=== PATIENT | male | born 1965 | race Caucasian/White ===

== ENCOUNTER 2016-08-17 22:05 | Inpatient (IN) | payer OTHER ==
[~2016-08-17] VITALS: Ht 172.7 cm; Wt 79.2 kg
[2016-08-17] MEDS ORDERED: NALOXONE HCL 0.4 MG/ML AMP IV PRN (23:00)
[2016-08-17] MEDS ORDERED: SODIUM CHLORIDE 0.9% FLUSH 10 ML FLUSH IV FLUSH PRN (23:00)
[2016-08-18] VITALS (8 sets, daily range): BP systolic 118–137; BP diastolic 73–95; PULSE 64–78; RESP 16–18; TEMP 96.3–97.6; O2SAT 94–95
--- NOTE | 2016-08-18 03:17 | HHI.HP ---
[facility] Service [place] [facility] Primary Care Physician Unknown Admission Diagnosis subdural hematoma Diagnoses: Chief Complaint: "fell down a flight of stairs" Travel History International Travel<30 Days: No Contact w/Intl Traveler <30 Da: No Traveled to Known Affected Are: No History of Present Illness Written by Mariza Lei, acting as scribe for Dr. Meyers on 08/18/16 at 03: 17. This is a 50 year old male patient with a past medical history which includes asthma and EtOH abuse. Patient had been drinking on Tuesday when he slipped and fell down a flight of stairs. Patient denies loss of consciousness but does have visible abrasion right side of the forehead. Patient also reports left chest wall pain worse with taking a deep breath or palpation. Pain is better with IV Dilaudid. Patient denies shortness of breath, dizziness, nausea, vomiting, black tarry stools or bright red blood in stool. Patient does report he had diarrhea a few days ago which has resolved. Patient reports he used to drink a 12 pack of beer a day but now drinks a 12 pack of beer 2 days a week. Patient reports he is trying to cut down on his alcohol use. Review of Systems ROS Limitations: Poor Historian Except as stated in HPI: all other systems reviewed are Neg Past Family Social History Past Medical History asthma Past Surgical History denies prior surgery Reported Medications No Active Prescriptions or Reported Medications Allergies: Coded Allergies: No Known Allergies (Unverified , 08/17/16) Active Ordered Medications Current Medications Medications (Trade) Dose Ordered Sig/Audie Route Start Time Stop Time Status Last Admin (NS Flush) 2 ml UNSCH PRN IV FLUSH 08/17/16 23:00 (NS Flush) 2 ml BID IV FLUSH 08/18/16 09:00 (Narcan Inj) 0.4 mg UNSCH PRN IV 08/17/16 23:00 Family History brother has a heart murmur Social History drink a 12 pack of beer twice a week denies tobacco use now or in the past cocaine last used in the s Physical Exam Vital Signs Vital Signs Date Time Temp Pulse Resp B/P Pulse Ox O2 Delivery O2 Flow Rate FiO2 08/18/16 00:00 97.3 70 18 134/86 95 Physical Exam GENERAL: This is a well-nourished, well-developed patient, in no apparent distress. SKIN: abrasion right side of forehead HEAD: abrasion right side fo forehead EYES: Extraocular motions intact. No scleral icterus. No injection or drainage. CARDIOVASCULAR: Regular rate and rhythm without murmurs, gallops, or rubs. RESPIRATORY: Clear to auscultation. Breath sounds equal bilaterally. No wheezes , rales, or rhonchi. GASTROINTESTINAL: Abdomen soft, non-tender, nondistended. No hepato-splenomegaly , or palpable masses. No guarding. MUSCULOSKELETAL: Extremities without clubbing, cyanosis, or edema. No joint tenderness, effusion, or edema noted. No calf tenderness. Negative Homans sign bilaterally. NEUROLOGICAL: Awake and alert. no focal deficits noted. Motor and sensory grossly within normal limits. Five out of 5 muscle strength in all muscle groups. Normal speech. Assessment and Plan Assessment and Plan This is a 50-year-old male patient with past medical history she includes asthma and EtOH abuse. Patient was drinking on Tuesday and slipped falling down a flight of stairs. Patient with abrasion right side of forehead and left sided chest wall pain. CT of the head revealed and reveals small amount of subdural hemorrhage. CT of the chest reviewed and reveals left-sided rib fractures without pneumothorax. subdural hematoma CT of the head reviewed and reveals there is some mild thickening of the Falx and tentorium especially on the left concerning for small amount of subdural hemorrhage. No midline shift or mass effect [place] [facility] provider discussed with Dr. Cheney- recommends repeat head CT in 48 hours, consider consult to Dr. Cheney based on results of repeat CT serial neuro checks Rib fractures left side CT of the chest reviewed and reveals no consolidation or mass. Left-sided rib fractures without pneumothorax IS every hour while awake [place] by mouth and morphine IV as needed fall secondary to ETOH intoxication ETOH abuse counselled encouraged to abstain DVT prophylaxis with SCDs avoid chemical anticoagulations- patient with subdural hematoma Discussed with ER provider, nursing and patient Mariza Lei Aug 18, 2016 03:17 Mariza Lei Aug 18, 2016 03:17
[2016-08-18] MEDS: ACETAMINOPHEN/HYDROcodone 325 MG/5 MG TAB PO PRN ×5 (03:40→21:42)
[2016-08-18 07:45] LABS: AUTOMATED NEUTROPHIL # 4.8 TH/MM3 (1.8-7.7); BASOPHIL % 0.3 % (0.0-2.0); EOSINOPHIL # 0.1 TH/MM3 (0-0.4); EOSINOPHIL % 2.1 % (0.0-4.0); HEMATOCRIT 41.6 % (39.0-51.0); HEMO FLAGS DIFF FINAL; LYMPH % 13.4 % (9.0-44.0); LYMPHOCYTE # 0.9 TH/MM3 (1.0-4.8); MEAN CELL VOLUME 94.5 FL (80.0-100.0); MEAN CORPUSCULAR HEMOGLOBIN 33.6 PG (27.0-34.0); MEAN CORPUSCULAR HGB CONC 35.5 % (32.0-36.0); MONO % 14.7 % (0.0-8.0); NEUT % 69.5 % (16.0-70.0); PLATELET COUNT 136 TH/MM3 (150-450); RED BLOOD COUNT 4.41 MIL/MM3 (4.50-5.90); RED CELL DISTRIBUTION WIDTH 12.3 % (11.6-17.2); WHITE BLOOD COUNT 6.8 TH/MM3 (4.0-11.0)
[2016-08-18 08:09] LABS: POTASSIUM 3.3 MEQ/L (3.5-5.1)
[2016-08-18] MEDS ORDERED: POTASSIUM CHLORIDE 20 MEQ CONTROLLED RELEASE TAB PO ONE ×2 (08:30→10:45)
[2016-08-18] MEDS: SODIUM CHLORIDE 0.9% FLUSH 10 ML FLUSH IV FLUSH SCH ×2 (09:08→22:59)
--- NOTE | 2016-08-18 16:19 | HHI.PR ---
Subjective Remarks This is a pleasant 50 y/o male with Asthma and EtOH abuse, he slipped and fell down a flight of stairs Patient denies loss of consciousness but does have visible abrasion right side of the forehead. Patient also reports left chest wall pain worse with taking a deep breath or palpation, no nausea, vomit or diarrhea, he drinks 12 pack of beer 2 days a week, blood in stool. he was sent from [place] [facility] for admission with status post Head Trauma for new CT Head to be performed by tomorrow as recommended by Neurosurgery and if okay discharge Home. patient stable in his bedroom. Objective Vital Signs Date Time Temp Pulse Resp B/P Pulse Ox O2 Delivery O2 Flow Rate FiO2 08/18/16 12:00 97.5 77 18 118/73 95 08/18/16 12:00 67 08/18/16 08:00 96.3 74 18 137/92 94 08/18/16 04:00 97.1 74 16 124/83 95 08/18/16 00:30 64 08/18/16 00:00 97.3 70 18 134/86 95 I/O 08/17/16 08/17/16 08/17/16 08/18/16 08/18/16 08/18/16 07:00 15:00 23:00 07:00 15:00 23:00 Intake Total 240 ml Balance 240 ml Intake Oral 240 ml # Voids 2 1 # Bowel Movements 0 Result Diagram: 08/18/16 0621 08/18/16 0621 Imaging No new imaging studies. Procedures No procedures Other Results Laboratory Tests Test 08/18/16 06:21 White Blood Count 6.8 TH/MM3 Red Blood Count 4.41 MIL/MM3 Hemoglobin 14.8 GM/DL Hematocrit 41.6 % Mean Corpuscular Volume 94.5 FL Mean Corpuscular Hemoglobin 33.6 PG Mean Corpuscular Hemoglobin 35.5 % Concent Red Cell Distribution Width 12.3 % Platelet Count 136 TH/MM3 Mean Platelet Volume 9.4 FL Neutrophils (%) (Auto) 69.5 % Lymphocytes (%) (Auto) 13.4 % Monocytes (%) (Auto) 14.7 % Eosinophils (%) (Auto) 2.1 % Basophils (%) (Auto) 0.3 % Neutrophils # (Auto) 4.8 TH/MM3 Lymphocytes # (Auto) 0.9 TH/MM3 Monocytes # (Auto) 1.0 TH/MM3 Eosinophils # (Auto) 0.1 TH/MM3 Basophils # (Auto) 0.0 TH/MM3 CBC Comment DIFF FINAL Differential Comment Sodium Level 139 MEQ/L Potassium Level 3.3 MEQ/L Chloride Level 101 MEQ/L Carbon Dioxide Level 30.0 MEQ/L Anion Gap 8 MEQ/L Blood Urea Nitrogen 9 MG/DL Creatinine 0.76 MG/DL Estimat Glomerular Filtration 109 ML/MIN Rate Random Glucose 90 MG/DL Calcium Level 8.3 MG/DL Objective Remarks GENERAL: This is a well-nourished, well-developed patient, in no apparent distress. SKIN: abrasion right side of forehead HEAD: abrasion right side fo forehead EYES: Extraocular motions intact. No scleral icterus. No injection or drainage. CARDIOVASCULAR: Regular rate and rhythm without murmurs, gallops, or rubs. RESPIRATORY: Clear to auscultation. Breath sounds equal bilaterally. No wheezes , rales, or rhonchi. GASTROINTESTINAL: Abdomen soft, non-tender, nondistended. No hepato-splenomegaly , or palpable masses. No guarding. MUSCULOSKELETAL: Extremities without clubbing, cyanosis, or edema. No joint tenderness, effusion, or edema noted. No calf tenderness. Negative Homans sign bilaterally. NEUROLOGICAL: Awake and alert. no focal deficits noted. Motor and sensory grossly within normal limits. Five out of 5 muscle strength in all muscle groups. Normal speech. Medications and IVs Current Medications Medications (Trade) Dose Ordered Sig/Audie Route Start Time Stop Time Status Last Admin (NS Flush) 2 ml UNSCH PRN IV FLUSH 08/17/16 23:00 (NS Flush) 2 ml BID IV FLUSH 08/18/16 09:00 08/18/16 09:08 (Narcan Inj) 0.4 mg UNSCH PRN IV 08/17/16 23:00 (Morphine Inj) 2 mg Q4H PRN IV PUSH 08/18/16 03:30 ([place] 5-325 Mg) 1 tab Q4H PRN PO 08/18/16 03:30 08/18/16 13:00 A/P Assessment and Plan subdural hematoma CT of the head reviewed and reveals there is some mild thickening of the Falx and tentorium especially on the left concerning for small amount of subdural hemorrhage. No midline shift or mass effect [facility] provider discussed with Dr. Cheney- recommends repeat head CT in 48 hours, consider consult to Dr. Cheney based on results of repeat CT serial neuro checks Rib fractures left side CT of the chest reviewed and reveals no consolidation or mass. Left-sided rib fractures without pneumothorax IS every hour while awake [place] by mouth and morphine IV as needed fall secondary to ETOH intoxication ETOH abuse counselled encouraged to abstain Hypokalemia replaced DVT prophylaxis with SCDs avoid chemical anticoagulations- patient with subdural hematoma Discharge Planning Expected tomorrow after CT brain if negative. Kwasi Brown MD Aug 18, 2016 16:19
[2016-08-18] MEDS: MORPHINE SULFATE 4 MG/ML INJ IV PUSH PRN (22:59)
[2016-08-19] VITALS (7 sets, daily range): BP systolic 100–159; BP diastolic 62–101; PULSE 65–72; RESP 18–20; TEMP 96.5–97.1; O2SAT 94–98
[2016-08-19] MEDS: ACETAMINOPHEN/HYDROcodone 325 MG/5 MG TAB PO PRN ×5 (04:09→21:21)
[2016-08-19] MEDS: SODIUM CHLORIDE 0.9% FLUSH 10 ML FLUSH IV FLUSH SCH ×2 (08:26→21:00)
--- NOTE | 2016-08-19 09:19 | HHI.PR ---
Subjective Remarks This is a pleasant 50 y/o male with Asthma and EtOH abuse, he slipped and fell down a flight of stairs Patient denies loss of consciousness but does have visible abrasion right side of the forehead. Patient also reports left chest wall pain worse with taking a deep breath or palpation, no nausea, vomit or diarrhea, he drinks 12 pack of beer 2 days a week, blood in stool. he was sent from [facility] [facility] room for admission with status post Head Trauma for new CT Head to be performed by tomorrow as recommended by Neurosurgery and if okay discharge Home. patient stable in his bedroom. 08/19: Awaiting for CT brain for discharge also following Potassium and Magnesium for replacement. No nausea, vomit or diarrhea, Awaiting for Neurosurgery for discharge recommendations. Objective Vital Signs Date Time Temp Pulse Resp B/P Pulse Ox O2 Delivery O2 Flow Rate FiO2 08/19/16 08:10 96.8 71 18 135/88 94 08/19/16 04:00 97.1 72 18 147/91 94 08/19/16 00:00 97.0 69 20 124/89 95 08/18/16 23:11 72 08/18/16 20:00 97.4 77 18 134/95 94 08/18/16 16:00 97.6 78 18 125/90 95 08/18/16 12:00 97.5 77 18 118/73 95 08/18/16 12:00 67 I/O 08/18/16 08/18/16 08/18/16 08/19/16 08/19/16 08/19/16 07:00 15:00 23:00 07:00 15:00 23:00 Intake Total 1200 ml Balance 1200 ml Intake Oral 1200 ml # Voids 2 5 2 1 # Bowel Movements 0 Result Diagram: 08/18/1662008/18/1621 Imaging Last Impressions Head CT 08/19/16 1441 Signed Impressions: Service Date/Time: July 14:57 - CONCLUSION: 1. Subdural hematoma along the interhemispheric fissure and extending down along the tentorium unchanged from prior. Mervin Moss MD Procedures No procedures Other Results Laboratory Tests Test 08/18/16 06:21 White Blood Count 6.8 TH/MM3 Red Blood Count 4.41 MIL/MM3 Hemoglobin 14.8 GM/DL Hematocrit 41.6 % Mean Corpuscular Volume 94.5 FL Mean Corpuscular Hemoglobin 33.6 PG Mean Corpuscular Hemoglobin 35.5 % Concent Red Cell Distribution Width 12.3 % Platelet Count 136 TH/MM3 Mean Platelet Volume 9.4 FL Neutrophils (%) (Auto) 69.5 % Lymphocytes (%) (Auto) 13.4 % Monocytes (%) (Auto) 14.7 % Eosinophils (%) (Auto) 2.1 % Basophils (%) (Auto) 0.3 % Neutrophils # (Auto) 4.8 TH/MM3 Lymphocytes # (Auto) 0.9 TH/MM3 Monocytes # (Auto) 1.0 TH/MM3 Eosinophils # (Auto) 0.1 TH/MM3 Basophils # (Auto) 0.0 TH/MM3 CBC Comment DIFF FINAL Differential Comment Sodium Level 139 MEQ/L Potassium Level 3.3 MEQ/L Chloride Level 101 MEQ/L Carbon Dioxide Level 30.0 MEQ/L Anion Gap 8 MEQ/L Blood Urea Nitrogen 9 MG/DL Creatinine 0.76 MG/DL Estimat Glomerular Filtration 109 ML/MIN Rate Random Glucose 90 MG/DL Calcium Level 8.3 MG/DL Objective Remarks GENERAL: This is a well-nourished, well-developed patient, in no apparent distress. SKIN: abrasion right side of forehead HEAD: abrasion right side fo forehead EYES: Extraocular motions intact. No scleral icterus. No injection or drainage. CARDIOVASCULAR: Regular rate and rhythm without murmurs, gallops, or rubs. RESPIRATORY: Clear to auscultation. Breath sounds equal bilaterally. No wheezes , rales, or rhonchi. GASTROINTESTINAL: Abdomen soft, non-tender, nondistended. No hepato-splenomegaly , or palpable masses. No guarding. MUSCULOSKELETAL: Extremities without clubbing, cyanosis, or edema. No joint tenderness, effusion, or edema noted. No calf tenderness. Negative Homans sign bilaterally. NEUROLOGICAL: Awake and alert. no focal deficits noted. Motor and sensory grossly within normal limits. Five out of 5 muscle strength in all muscle groups. Normal speech. Medications and IVs Current Medications Medications (Trade) Dose Ordered Sig/Aduie Route Start Time Stop Time Status Last Admin (NS Flush) 2 ml UNSCH PRN IV FLUSH 08/17/16 23:00 (NS Flush) 2 ml BID IV FLUSH 08/18/16 09:00 08/19/16 08:26 (Narcan Inj) 0.4 mg UNSCH PRN IV 08/17/16 23:00 (Morphine Inj) 2 mg Q4H PRN IV PUSH 08/18/16 03:30 08/18/16 22:59 ([place] 5-325 Mg) 1 tab Q4H PRN PO 08/18/16 03:30 08/19/16 08:26 A/P Assessment and Plan subdural hematoma CT of the head reviewed and reveals there is some mild thickening of the Falx and tentorium especially on the left concerning for small amount of subdural hemorrhage. No midline shift or mass effect [place] [facility] provider discussed with Dr. Cheney- recommends repeat head CT in 48 hours, new CT scan in chart at this time asked for Neurosurgical consult at this time Rib fractures left side CT of the chest reviewed and reveals no consolidation or mass. Left-sided rib fractures without pneumothorax IS every hour while awake [place] by mouth and Discontinue Morphine IV for probable discharge later if okay by Neurosurgery. fall secondary to ETOH intoxication ETOH abuse counselled encouraged to abstain DVT prophylaxis with SCDs avoid chemical anticoagulations- patient with subdural hematoma Discharge Planning Expected later today after CT brain if negative. Kwasi Brown MD Aug 19, 2016 09:19
[2016-08-19 09:36] LABS: POTASSIUM 3.7 MEQ/L (3.5-5.1)
[2016-08-19 09:37] LABS: MAGNESIUM 2.3 MG/DL (1.5-2.5)
--- NOTE | 2016-08-19 15:45 | RADRPT ---
EXAM DATE/TIME: 08/19/2016 14:57 [facility] COMPARISON: CT BRAIN W/O CONTRAST, August 17, 2016, 14:41. CT CERVICAL SPINE W/O CONTRAST, August 17, 2016, 16:31. INDICATIONS : Acute subdural bleed . RADIATION DOSE: 56.35 CTDIvol (mGy) MEDICAL HISTORY : None SURGICAL HISTORY : None. ENCOUNTER: Initial ACUITY: 1 day PAIN SCALE: 2/10 LOCATION: Bilateral cranial TECHNIQUE: Multiple contiguous axial images were obtained of the head. Using automated exposure control and adj ustment of the mA and/or kV according to patient size, radiation dose was kept as low as reasonably a chievable to obtain optimal diagnostic quality images. FINDINGS: The examination demonstrates subdural hemorrhage along the interhemispheric fissure and extending marily n and layering along the tentorium. This is unchanged from previous exam. There is no significant mas s effect associated with this. The ventricles are normal in size and configuration. No mass lesion is seen. The appearance of the po sterior fossa is unremarkable. The sulci and gyri are intact. The skull is intact. There is minimal fluid within the floor the maxillary sinuses bilaterally. CONCLUSION: 1. Subdural hematoma along the interhemispheric fissure and extending down along the tentorium unchan ged from prior. Mervin Moss MD on August 19, 2016 at 15:41 Board Certified Radiologist. This report was verified electronically.
[2016-08-20] VITALS (8 sets, daily range): BP systolic 124–175; BP diastolic 79–104; PULSE 67–82; RESP 18; TEMP 96.6–97.4; O2SAT 93–95
[2016-08-20] MEDS: MORPHINE SULFATE 4 MG/ML INJ IV PUSH PRN (06:29)
[2016-08-20] MEDS ORDERED: POTASSIUM CHLORIDE 20 MEQ CONTROLLED RELEASE TAB PO ONE (09:30)
[2016-08-20] MEDS: ACETAMINOPHEN/HYDROcodone 325 MG/5 MG TAB PO PRN ×2 (11:33→16:09)
[2016-08-20] MEDS: SODIUM CHLORIDE 0.9% FLUSH 10 ML FLUSH IV FLUSH SCH ×2 (16:10→20:48)
--- NOTE | 2016-08-20 16:34 | HHI.PR ---
Subjective Remarks This is a pleasant 50 y/o male with Asthma and EtOH abuse, he slipped and fell down a flight of stairs Patient denies loss of consciousness but does have visible abrasion right side of the forehead. Patient also reports left chest wall pain worse with taking a deep breath or palpation, no nausea, vomit or diarrhea, he drinks 12 pack of beer 2 days a week, blood in stool. he was sent from [place] [facility] room for admission with status post Head Trauma for new CT Head to be performed. 08/20: Seen in his bedroom, stable seen by Neurosurgery but not clear for discharge will call Neurosurgery no nausea, vomit or diarrhea. Objective Vital Signs Date Time Temp Pulse Resp B/P Pulse Ox O2 Delivery O2 Flow Rate FiO2 08/20/16 15:57 97.4 72 18 140/92 95 08/20/16 12:40 18 08/20/16 11:42 96.6 76 18 124/79 94 08/20/16 07:43 97.1 73 18 132/90 93 08/20/16 04:00 96.9 67 18 175/104 95 08/20/16 00:00 96.8 70 18 134/81 95 08/19/16 20:00 97.0 69 18 159/101 95 08/19/16 19:00 72 I/O 08/19/16 08/19/16 08/19/16 08/20/16 08/20/16 08/20/16 07:00 15:00 23:00 07:00 15:00 23:00 Intake Total 480 ml 360 ml 240 ml Output Total 350 ml Balance 480 ml 10 ml 240 ml Intake Oral 480 ml 360 ml 240 ml Output Urine Total 350 ml # Voids 1 3 3 4 Result Diagram: 08/18/16 0621 08/19/16 0810 Imaging Last Impressions Head CT 08/19/16 1441 Signed Impressions: Service Date/Time: July 14:57 - CONCLUSION: 1. Subdural hematoma along the interhemispheric fissure and extending down along the tentorium unchanged from prior. Mervin Moss MD Procedures No procedures Other Results Laboratory Tests Test 08/18/16 08/19/16 06:21 08:10 White Blood Count 6.8 TH/MM3 Red Blood Count 4.41 MIL/MM3 Hemoglobin 14.8 GM/DL Hematocrit 41.6 % Mean Corpuscular Volume 94.5 FL Mean Corpuscular Hemoglobin 33.6 PG Mean Corpuscular Hemoglobin 35.5 % Concent Red Cell Distribution Width 12.3 % Platelet Count 136 TH/MM3 Mean Platelet Volume 9.4 FL Neutrophils (%) (Auto) 69.5 % Lymphocytes (%) (Auto) 13.4 % Monocytes (%) (Auto) 14.7 % Eosinophils (%) (Auto) 2.1 % Basophils (%) (Auto) 0.3 % Neutrophils # (Auto) 4.8 TH/MM3 Lymphocytes # (Auto) 0.9 TH/MM3 Monocytes # (Auto) 1.0 TH/MM3 Eosinophils # (Auto) 0.1 TH/MM3 Basophils # (Auto) 0.0 TH/MM3 CBC Comment DIFF FINAL Differential Comment Sodium Level 139 MEQ/L Chloride Level 101 MEQ/L Carbon Dioxide Level 30.0 MEQ/L Anion Gap 8 MEQ/L Blood Urea Nitrogen 9 MG/DL Creatinine 0.76 MG/DL Estimat Glomerular Filtration 109 ML/MIN Rate Random Glucose 90 MG/DL Calcium Level 8.3 MG/DL Potassium Level 3.7 MEQ/L Magnesium Level 2.3 MG/DL Objective Remarks GENERAL: This is a well-nourished, well-developed patient, in no apparent distress. SKIN: abrasion right side of forehead HEAD: abrasion right side fo forehead EYES: Extraocular motions intact. No scleral icterus. No injection or drainage. CARDIOVASCULAR: Regular rate and rhythm without murmurs, gallops, or rubs. RESPIRATORY: Clear to auscultation. Breath sounds equal bilaterally. No wheezes , rales, or rhonchi. GASTROINTESTINAL: Abdomen soft, non-tender, nondistended. No hepato-splenomegaly , or palpable masses. No guarding. MUSCULOSKELETAL: Extremities without clubbing, cyanosis, or edema. No joint tenderness, effusion, or edema noted. No calf tenderness. Negative Homans sign bilaterally. NEUROLOGICAL: Awake and alert. no focal deficits noted. Motor and sensory grossly within normal limits. Five out of 5 muscle strength in all muscle groups. Normal speech. Medications and IVs Current Medications Medications (Trade) Dose Ordered Sig/Audie Route Start Time Stop Time Status Last Admin (NS Flush) 2 ml UNSCH PRN IV FLUSH 08/17/16 23:00 (NS Flush) 2 ml BID IV FLUSH 08/18/16 09:00 08/20/16 16:10 (Narcan Inj) 0.4 mg UNSCH PRN IV 08/17/16 23:00 ([place] 5-325 Mg) 1 tab Q4H PRN PO 08/18/16 03:30 08/20/16 16:09 ([place] 7.5-325 Mg) 1 tab Q4H PRN PO 08/20/16 09:00 A/P Assessment and Plan subdural hematoma CT of the head reviewed and reveals there is some mild thickening of the Falx and tentorium especially on the left concerning for small amount of subdural hemorrhage. No midline shift or mass effect [place] [facility] provider discussed with Dr. Cheney- recommends repeat head CT in 48 hours, New CT in EMR and no change, will discuss with Neurosurgery to evaluate Probable discharge tomorrow in am. ICP monitor is not indicated, Rib fractures left side CT of the chest reviewed and reveals no consolidation or mass. Left-sided rib fractures without pneumothorax IS every hour while awake [place] by mouth and Discontinue Morphine IV for probable discharge later if okay by Neurosurgery. fall secondary to ETOH intoxication ETOH abuse counselled encouraged to abstain DVT prophylaxis with SCDs avoid chemical anticoagulations- patient with subdural hematoma Discharge Planning Expected by tomorrow. Kwasi Brown MD Aug 20, 2016 16:34 Kwasi Brown MD Aug 20, 2016 16:34
--- NOTE | 2016-08-20 16:49 | PD.CONS ---
(Juan Jose Rosa MD) HPI Consult Requested By Primary Care Physician Unknown (Juan Jose Rosa MD) Service Neurosurgery Consult Requested By Hospitalist Reason for Consult ICH History of Present Illness Mr. Maciel is a 50 year old male who was drinking on Tuesday and fell off flight of stairs. The patient denies loss of consciousness but does have visible abrasion right side of the forehead. He was taken to [facility] ED where a CT shows small subdural hematoma at the falx. This was discussed with Dr. Cheney, neurosurgeon by the ED physician and had recommended a f/u CT Head in 48 hours. The patient is now admitted here at [facility] and a neurosurgical evaluation was requested. He has undergone a f/u CT Head since. The patient denies any significant headaches, nausea, vomiting, focal weakness, seizures. (Geraldine Almonte) Review of Systems Constitutional: DENIES: Fever, Chills Eyes: DENIES: Diplopia Ears, nose, mouth, throat: DENIES: Vertigo Respiratory: DENIES: Apneas, Wheezing, Hemoptysis Cardiovascular: DENIES: Chest pain Gastrointestinal: DENIES: Abdominal pain, Nausea, Vomiting Genitourinary: DENIES: Urinary incontinence Musculoskeletal: DENIES: Neck pain Neurologic: COMPLAINS OF: Headache (mild), DENIES: Abnormal gait, Paresthesias , Seizures (Geraldine Almonte) Past Family Social History Allergies: Coded Allergies: No Known Allergies (Unverified , 08/17/16) Past Medical History Asthma History of etoh abuse Past Surgical History reports no previous surgical history Reported Medications reviewed in EMR Active Ordered Medications Current Medications Medications (Trade) Dose Ordered Sig/Audie Route PRN Reason Start Time Stop Time Status Last Admin Dose Admin Sodium Chloride (NS Flush) 2 ml UNSCH PRN IV FLUSH FLUSH AFTER USING IV ACCESS 08/17/16 23:00 Sodium Chloride (NS Flush) 2 ml BID IV FLUSH 08/18/16 09:00 08/20/16 16:10 Naloxone HCl (Narcan Inj) 0.4 mg UNSCH PRN IV SEE LABEL COMMENTS 08/17/16 23:00 Acetaminophen/ Hydrocodone Bitart ([place] 5-325 Mg) 1 tab Q4H PRN PO PAIN SCALE 1 TO 5 08/18/16 03:30 08/20/16 16:09 Acetaminophen/ Hydrocodone Bitart ([place] 7.5-325 Mg) 1 tab Q4H PRN PO PAIN SCALE 6 TO 10 08/20/16 09:00 Family History noncontributory Social History etoh abuse, drink a 12 pack of beer twice a week reports no tobacco use history of cocaine used in the s (Geraldine Almonte) Physical Exam Vital Signs Vital Signs Date Time Temp Pulse Resp B/P Pulse Ox O2 Delivery O2 Flow Rate FiO2 08/20/16 15:57 97.4 72 18 140/92 95 08/20/16 12:40 18 08/20/16 11:42 96.6 76 18 124/79 94 08/20/16 07:43 97.1 73 18 132/90 93 08/20/16 04:00 96.9 67 18 175/104 95 08/20/16 00:00 96.8 70 18 134/81 95 08/19/16 20:00 97.0 69 18 159/101 95 08/19/16 19:00 72 Physical Exam Mr. Maciel is alert, awake and oriented to time, place and person. Speech is fluent. Higher cognitive functions are normal. Cranial nerve examination demonstrates the pupils to be equal, round, and reactive to light. Extra-ocular movements are intact. Facial motor and sensory function are normal and symmetrical. Gross hearing is intact, bilaterally. The uvula is midline and elevates symmetrically with the soft palate. Sternocleidomastoid and trapezius muscles have normal and symmetrical strength. Other cranial nerves are intact. Neck is soft and supple. Muscle testing reveals normal bulk and tone overall without rigidity, spasticity , fasciculations, or atrophy. Muscle strength is 5/5 in all muscle groups of both upper extremities including deltoid, biceps, triceps, brachioradialis, wrist extension and linseed oil boiler. In the lower extremities, strength is 5/5 in both iliopsoas, quadriceps, hamstrings, plantar flexion, dorsiflexion, and extensor hallicus longus. Sensory examination is intact to light touch in both the upper and lower extremities, symmetrically. Deep tendon reflexes are 2+ and symmetrical in the biceps, triceps, and brachioradialis, bilaterally, in the upper extremities. In the lower extremities , the patellar and Achilles are 2+, bilaterally. There is a bilateral plantar flexion response. Hoffmanns sign is negative. There is no clonus or other abnormal reflexes noted. Cerebellar examination is intact (Juan Jose Rosa MD) Physical Exam Mr. Maciel is alert, awake and oriented to time, place and person. Speech is fluent. Higher cognitive functions are normal. Cranial nerve examination demonstrates the pupils to be equal, round, and reactive to light. Extra-ocular movements are intact. Facial motor and sensory function are normal and symmetrical. Gross hearing is intact, bilaterally. The uvula is midline and elevates symmetrically with the soft palate. Sternocleidomastoid and trapezius muscles have normal and symmetrical strength. Other cranial nerves are intact. Neck is soft and supple. Muscle testing reveals normal bulk and tone overall without rigidity, spasticity , fasciculations, or atrophy. Muscle strength is 5/5 in all muscle groups of both upper extremities including deltoid, biceps, triceps, brachioradialis, wrist extension and linseed oil boiler. In the lower extremities, strength is 5/5 in both iliopsoas, quadriceps, hamstrings, plantar flexion, dorsiflexion, and extensor hallicus longus. Sensory examination is intact to light touch in both the upper and lower extremities, symmetrically. Deep tendon reflexes are 2+ and symmetrical in the biceps, triceps, and brachioradialis, bilaterally, in the upper extremities. In the lower extremities , the patellar and Achilles are 2+, bilaterally. There is a bilateral plantar flexion response. Hoffmanns sign is negative. There is no clonus or other abnormal reflexes noted. Cerebellar examination is intact to [id number] test. (Geraldine Almonte) Result Diagram: 08/18/16 0621 08/19/16 0810 Imaging Last Impressions Head CT 08/19/16 1441 Signed Impressions: Service Date/Time: July 14:57 - CONCLUSION: 1. Subdural hematoma along the interhemispheric fissure and extending down along the tentorium unchanged from prior. Mervin Moss MD (Juan Jose Rosa MD) Imaging Last Impressions Head CT 08/19/16 1441 Signed Impressions: Service Date/Time: July 14:57 - CONCLUSION: 1. Subdural hematoma along the interhemispheric fissure and extending down along the tentorium unchanged from prior. Mervin Moss MD (Geraldine Almonte) Attending Statement I reviewed his clinical and radiological studies. neuro checks in a serial fashion. Placement of ICP monitor is not indicated as recommended by the [employer]. Respiratory. pulmonary toilette, nasotracheal suction, and breathing treatments with nebulizers. Rib fractures. Narcotic analgesics as needed. Watch for development of pneumothorax PT and OT eval Nutrition. Oral diet Renal. monitor closely urine output, BUN and creatinine Endocrine. Monitor serial Acu checks and SSI for tight control ID monitor for signs of infection Protonix for stress ulcer prophylaxis Ezra hose and SCD's for DVT prophylaxis The exam, history, and the medical decision-making described in the above note were completed with the assistance of the mid-level provider. I reviewed and agree with the findings presented. I attest that I had a [id number] encounter with the patient on the same day, and personally performed and documented my assessment and findings in the medical record. (Juan Jose Rosa MD) Juan Jose Rosa MD Aug 20, 2016 16:49 Geraldine Almonte Aug 20, 2016 16:55
[2016-08-20] MEDS: ACETAMINOPHEN/HYDROcodone 325 MG/7.5 MG TAB PO PRN (20:52)
[2016-08-21] VITALS: BP 132/86; PULSE 77; RESP 18; TEMP 97.2; O2SAT 95
[2016-08-21] MEDS: ACETAMINOPHEN/HYDROcodone 325 MG/7.5 MG TAB PO PRN ×2 (00:32→09:10)
[2016-08-21 04:00] VITALS: BP 147/88; PULSE 67; RESP 18; TEMP 96; O2SAT 95
[2016-08-21] MEDS: ACETAMINOPHEN/HYDROcodone 325 MG/5 MG TAB PO PRN (05:37)
[2016-08-21 08:05] VITALS: PULSE 65
[2016-08-21 08:08] VITALS: BP 142/91; PULSE 64; RESP 18; TEMP 96.3; O2SAT 97
[2016-08-21] MEDS ORDERED: PNEUMOCOCCAL POLYVALENT INJ 25 MCG/0.5 ML SYR IM ONE (09:00)
[2016-08-21] MEDS: SODIUM CHLORIDE 0.9% FLUSH 10 ML FLUSH IV FLUSH SCH (09:08)
[2016-08-21] MEDS ORDERED: HYDR-3516 PO (10:21)
--- NOTE | 2016-08-21 10:21 | HHI.PR ---
Subjective Remarks This is a pleasant 50 y/o male with Asthma and EtOH abuse, he slipped and fell down a flight of stairs Patient denies loss of consciousness but does have visible abrasion right side of the forehead. Patient also reports left chest wall pain worse with taking a deep breath or palpation, no nausea, vomit or diarrhea, he drinks 12 pack of beer 2 days a week, blood in stool. he was sent from [facility] room for admission with status post Head Trauma for new CT Head to be performed. 08/21: Seen in his bedroom and discussed with nurse Miss Lentz called Neurosurgery and clear the patient for discharge, No headache, no nausea,vomit or diarrhea. Objective Vital Signs Date Time Temp Pulse Resp B/P Pulse Ox O2 Delivery O2 Flow Rate FiO2 08/21/16 08:08 96.3 64 18 142/91 97 08/21/16 08:05 65 08/21/16 04:00 96.0 67 18 147/88 95 08/21/16 00:00 97.2 77 18 132/86 95 08/20/16 20:03 71 08/20/16 20:00 97.0 82 18 136/99 95 08/20/16 19:02 22 08/20/16 19:00 71 08/20/16 15:57 97.4 72 18 140/92 95 08/20/16 11:42 96.6 76 18 124/79 94 I/O 08/20/16 08/20/16 08/20/16 08/21/16 08/21/16 08/21/16 07:00 15:00 23:00 07:00 15:00 23:00 Intake Total 240 ml 650 ml Balance 240 ml 650 ml Intake Oral 240 ml 650 ml # Voids 3 4 4 Result Diagram: 08/18/16 0621 08/19/16 0810 Imaging Last Impressions Head CT 08/19/16 1441 Signed Impressions: Service Date/Time: July 14:57 - CONCLUSION: 1. Subdural hematoma along the interhemispheric fissure and extending down along the tentorium unchanged from prior. Mervin Moss MD Procedures No procedures Other Results Laboratory Tests Test 08/18/16 08/19/16 06:21 08:10 White Blood Count 6.8 TH/MM3 Red Blood Count 4.41 MIL/MM3 Hemoglobin 14.8 GM/DL Hematocrit 41.6 % Mean Corpuscular Volume 94.5 FL Mean Corpuscular Hemoglobin 33.6 PG Mean Corpuscular Hemoglobin 35.5 % Concent Red Cell Distribution Width 12.3 % Platelet Count 136 TH/MM3 Mean Platelet Volume 9.4 FL Neutrophils (%) (Auto) 69.5 % Lymphocytes (%) (Auto) 13.4 % Monocytes (%) (Auto) 14.7 % Eosinophils (%) (Auto) 2.1 % Basophils (%) (Auto) 0.3 % Neutrophils # (Auto) 4.8 TH/MM3 Lymphocytes # (Auto) 0.9 TH/MM3 Monocytes # (Auto) 1.0 TH/MM3 Eosinophils # (Auto) 0.1 TH/MM3 Basophils # (Auto) 0.0 TH/MM3 CBC Comment DIFF FINAL Differential Comment Sodium Level 139 MEQ/L Chloride Level 101 MEQ/L Carbon Dioxide Level 30.0 MEQ/L Anion Gap 8 MEQ/L Blood Urea Nitrogen 9 MG/DL Creatinine 0.76 MG/DL Estimat Glomerular Filtration 109 ML/MIN Rate Random Glucose 90 MG/DL Calcium Level 8.3 MG/DL Potassium Level 3.7 MEQ/L Magnesium Level 2.3 MG/DL Objective Remarks GENERAL: This is a well-nourished, well-developed patient, in no apparent distress. SKIN: abrasion right side of forehead HEAD: abrasion right side fo forehead EYES: Extraocular motions intact. No scleral icterus. No injection or drainage. CARDIOVASCULAR: Regular rate and rhythm without murmurs, gallops, or rubs. RESPIRATORY: Clear to auscultation. Breath sounds equal bilaterally. No wheezes , rales, or rhonchi. GASTROINTESTINAL: Abdomen soft, non-tender, nondistended. No hepato-splenomegaly , or palpable masses. No guarding. MUSCULOSKELETAL: Extremities without clubbing, cyanosis, or edema. No joint tenderness, effusion, or edema noted. No calf tenderness. Negative Homans sign bilaterally. NEUROLOGICAL: Awake and alert. no focal deficits noted. Motor and sensory grossly within normal limits. Five out of 5 muscle strength in all muscle groups. Normal speech. Medications and IVs Current Medications Medications (Trade) Dose Ordered Sig/Audie Route Start Time Stop Time Status Last Admin (NS Flush) 2 ml UNSCH PRN IV FLUSH 08/17/16 23:00 (NS Flush) 2 ml BID IV FLUSH 08/18/16 09:00 08/21/16 09:08 (Narcan Inj) 0.4 mg UNSCH PRN IV 08/17/16 23:00 ([place] 5-325 Mg) 1 tab Q4H PRN PO 08/18/16 03:30 08/21/16 05:37 ([place] 7.5-325 Mg) 1 tab Q4H PRN PO 08/20/16 09:00 08/21/16 09:10 A/P Assessment and Plan subdural hematoma CT of the head reviewed and reveals there is some mild thickening of the Falx and tentorium especially on the left concerning for small amount of subdural hemorrhage. No midline shift or mass effect [place] [facility] provider discussed with Dr. Cheney- recommends repeat head CT in 48 hours, New CT scan performed Impressions: Subdural hematoma along the interhemispheric fissure and extending down along the tentorium unchanged from prior. stable for discharge as per Neurosurgery. Rib fractures left side CT of the chest reviewed and reveals no consolidation or mass. Left-sided rib fractures without pneumothorax IS every hour while awake continue Pain medicine as outpatient. fall secondary to ETOH intoxication ETOH abuse counselled encouraged to abstain DVT prophylaxis with SCDs avoid chemical anticoagulations- patient with subdural hematoma Discharge Planning Discharge Today Kwasi Brown MD Aug 21, 2016 10:21
--- NOTE | 2016-08-21 10:24 | HHI.DS ---
Discharge Summary Admission Date Aug 18, 2016 at 09:19 Discharge Date: Aug 21, 2016 Admitting Diagnosis subdural hematoma (1) Rib fracture ICD Code: S22.39XA Diagnosis: Principal (2) Head injury ICD Code: S09.90XA Diagnosis: Principal (3) Subdural bleeding ICD Code: I62.00 Diagnosis: Principal Procedures None Brief History - From Admission Written by Mariza Lei, acting as scribe for Dr. Meyers on 08/18/16 at 03: 17. This is a 50 year old male patient with a past medical history which includes asthma and EtOH abuse. Patient had been drinking on Tuesday when he slipped and fell down a flight of stairs. Patient denies loss of consciousness but does have visible abrasion right side of the forehead. Patient also reports left chest wall pain worse with taking a deep breath or palpation. Pain is better with IV Dilaudid. Patient denies shortness of breath, dizziness, nausea, vomiting, black tarry stools or bright red blood in stool. Patient does report he had diarrhea a few days ago which has resolved. Patient reports he used to drink a 12 pack of beer a day but now drinks a 12 pack of beer 2 days a week. Patient reports he is trying to cut down on his alcohol use. CBC/BMP: 08/18/16 0621 08/19/16 0810 Imaging Last Impressions Head CT 08/19/16 1441 Signed Impressions: Service Date/Time: July 14:57 - CONCLUSION: 1. Subdural hematoma along the interhemispheric fissure and extending down along the tentorium unchanged from prior. Mervin Moss MD PE at Discharge GENERAL: This is a well-nourished, well-developed patient, in no apparent distress. SKIN: abrasion right side of forehead HEAD: abrasion right side fo forehead EYES: Extraocular motions intact. No scleral icterus. No injection or drainage. CARDIOVASCULAR: Regular rate and rhythm without murmurs, gallops, or rubs. RESPIRATORY: Clear to auscultation. Breath sounds equal bilaterally. No wheezes , rales, or rhonchi. GASTROINTESTINAL: Abdomen soft, non-tender, nondistended. No hepato-splenomegaly , or palpable masses. No guarding. MUSCULOSKELETAL: Extremities without clubbing, cyanosis, or edema. No joint tenderness, effusion, or edema noted. No calf tenderness. Negative Homans sign bilaterally. NEUROLOGICAL: Awake and alert. no focal deficits noted. Motor and sensory grossly within normal limits. Five out of 5 muscle strength in all muscle groups. Normal speech. Hospital Course This is a pleasant 50 y/o male with Asthma and EtOH abuse, he slipped and fell down a flight of stairs Patient denies loss of consciousness but does have visible abrasion right side of the forehead. Patient also reports left chest wall pain worse with taking a deep breath or palpation, no nausea, vomit or diarrhea, he drinks 12 pack of beer 2 days a week, blood in stool. he was sent from [facility] room for admission with status post Head Trauma for new CT Head to be performed. 08/21: Seen in his bedroom and discussed with nurse Miss Lentz called Neurosurgery and clear the patient for discharge, No headache, no nausea,vomit or diarrhea. Assessment and Plan subdural hematoma CT of the head reviewed and reveals there is some mild thickening of the Falx and tentorium especially on the left concerning for small amount of subdural hemorrhage. No midline shift or mass effect [facility] provider discussed with Dr. Cheney- recommends repeat head CT in 48 hours, New CT scan performed Impressions: Subdural hematoma along the interhemispheric fissure and extending down along the tentorium unchanged from prior. stable for discharge as per Neurosurgery. Rib fractures left side CT of the chest reviewed and reveals no consolidation or mass. Left-sided rib fractures without pneumothorax IS every hour while awake continue Pain medicine as outpatient. fall secondary to ETOH intoxication ETOH abuse counselled encouraged to abstain DVT prophylaxis with SCDs avoid chemical anticoagulations- patient with subdural hematoma Discharge Planning Discharge Today Pt Condition on Discharge: Good Discharge Disposition: Discharge Home Discharge Time: <= 30 minutes Discharge Instructions DIET: Follow Instructions for: As Tolerated, No Restrictions Activities you can perform: Regular-No Restrictions Other Activity Instructions: Recommended no streous exercise, rest at home and follow with PCP in two to three days and with Neurosurgery as outpatient. Kwasi Brown MD Aug 21, 2016 10:24
== END 2016-08-21 12:02 | disposition home or self-care (01) | DRG 86 ==
LOC: NEDDLT 22:05 → N05B 22:15 → OBSVTOIN 08-18 09:19
PROVIDERS: ADMIT Internal Medicine; ATTEND Internal Medicine
DX: S06.5X0A Traumatic subdural hemorrhage without loss of consciousness, initial encounter (principal); S22.42XA Multiple fractures of ribs, left side, initial encounter for closed fracture; S22.41XA Multiple fractures of ribs, right side, initial encounter for closed fracture; S00.81XA Abrasion of other part of head, initial encounter; E87.6 Hypokalemia; F10.129 Alcohol abuse with intoxication, unspecified; W10.9XXA Fall (on) (from) unspecified stairs and steps, initial encounter
CPT/HCPCS: 70450; 71250; 72125; 80048; 80053; 80307; 83735; 84132; 85025; 85610; 85730; 90732; 93005; 94150; 96374; 96375; 99281; G8987-GP; G8988-GP; J1170; J2270; J2405

== ENCOUNTER 2017-01-10 21:27 | Emergency (ER) | payer OTHER ==
[~2017-01-10] VITALS: Ht 165.1 cm; Wt 85.0 kg
[~2017-01-10 21:27] MED LIST: HYDR-3516 PO
[2017-01-10 21:41] VITALS: BP 141/76; PULSE 91; RESP 18; TEMP 98.1; O2SAT 96
[2017-01-10] MEDS ORDERED: HALOPERIDOL LACTATE 5 MG/ML AMP IM ONE (21:45)
[2017-01-10] MEDS ORDERED: LORazepam 2 MG/ML VIAL IM ONE (21:45)
[2017-01-10 22:21] LABS: AUTOMATED NEUTROPHIL # 6.3 TH/MM3 (1.8-7.7); BASOPHIL % 0.5 % (0.0-2.0); EOSINOPHIL # 0.3 TH/MM3 (0-0.4); EOSINOPHIL % 3.2 % (0.0-4.0); HEMATOCRIT 44.4 % (39.0-51.0); HEMO FLAGS DIFF FINAL; LYMPH % 27.9 % (9.0-44.0); LYMPHOCYTE # 2.8 TH/MM3 (1.0-4.8); MEAN CELL VOLUME 95.9 FL (80.0-100.0); MEAN CORPUSCULAR HEMOGLOBIN 33.1 PG (27.0-34.0); MEAN CORPUSCULAR HGB CONC 34.5 % (32.0-36.0); MONO % 6.2 % (0.0-8.0); NEUT % 62.2 % (16.0-70.0); PLATELET COUNT 153 TH/MM3 (150-450); RED BLOOD COUNT 4.63 MIL/MM3 (4.50-5.90); RED CELL DISTRIBUTION WIDTH 15.7 % (11.6-17.2)
[2017-01-10 22:45] LABS: ANION GAP 10 MEQ/L (5-15); AST (GOT) 29 U/L (15-37); BICARBONATE 24.5 MEQ/L (21.0-32.0); BLOOD UREA NITROGEN 7 MG/DL (7-18); CHLORIDE 113 MEQ/L (98-107); GLOMERULAR FILTRATION RATE 92 ML/MIN (>89); SODIUM (NA) 147 MEQ/L (136-145)
[2017-01-10 22:46] LABS: ALT (GPT) 30 U/L (12-78)
[2017-01-10 22:50] LABS: ALKALINE PHOSPHATASE 87 U/L (45-117); TOTAL BILIRUBIN ADULT 0.4 MG/DL (0.2-1.0)
[2017-01-10 22:51] VITALS: BP 123/64; PULSE 91; RESP 18; O2SAT 98
--- NOTE | 2017-01-10 23:20 | PD ---
HPI . Hensley Act Chief Complaint: Psychiatric Symptoms Time Seen by Provider: 21:42 Travel History International Travel<30 days: No Contact w/Intl Traveler<30days: No Traveled to known affect area: No History of Present Illness HPI Patient presents to us as a Hensley Act. The [place] [employer] paperwork reports that he was picked up on a street extremely intoxicated. The police report that he told them that he wanted to have a heart attack so that he would . They felt that he was a serious threat to himself, placed him under a Hensley act and brought him to the hospital. No further history is obtainable from the patient. PFSH Past Medical History Asthma: Yes Depression: Yes (2016) Cardiovascular Problems: No Chest Pain: Yes (OCCASSIONAL) Gastrointestinal Disorders: No Genitourinary: No Implanted Vascular Access Dvce: No Musculoskeletal: No Neurologic: No Reproductive: No Respiratory: Yes Immunizations Current: Yes Migraines: Yes (MORNING, LIGHT SENSITIVITY) Tetanus Vaccination: Unknown Influenza Vaccination: Yes Past Surgical History Other Surgery: No Social History Alcohol Use: Yes (last use yesterday, daily etoh) Tobacco Use: No Substance Use: Yes Allergies-Medications (Allergen,Severity, Reaction): Coded Allergies: No Known Allergies (Unverified Adverse Reaction, Unknown, 01/10/17) Reported Meds & Prescriptions Reported Meds & Active Scripts Active Review of Systems ROS Limitations: Intoxication, Uncooperative Physical Exam Narrative GENERAL: Awake and alert. Yelling continuously. Cursing. SKIN: Warm and dry. HEAD: Normocephalic/atraumatic. EYES: Pupils are equal. Extraocular movements are intact. NECK: Supple. CARDIOVASCULAR: Regular rate and rhythm. RESPIRATORY: Nonlabored. MUSCULOSKELETAL: Atraumatic. NEUROLOGICAL: Nonfocal. PSYCHIATRIC: Mood and affect are not appropriate. Data Data Last Documented VS Vital Signs Date Time Temp Pulse Resp B/P (MAP) Pulse Ox O2 Delivery O2 Flow Rate FiO2 01/11/17 00:12 79 16 95 Room Air 01/10/17 22:51 2.00 01/10/17 21:41 98.1 Orders Orders Complete Blood Count With Diff (01/10/17 21:44) Comprehensive Metabolic Panel (01/10/17 21:44) Psych Screen (01/10/17 21:44) Haloperidol Inj (Haldol Inj) (01/10/17 21:45) Lorazepam Inj (Ativan Inj) (01/10/17 21:45) Restraints Non-Violent LIA.Q3H (01/10/17 21:44) Drug Screen, Random Urine (01/10/17 21:44) Alcohol (Ethanol) (01/10/17 21:44) Ct Brain W/O Iv Contrast(Rout) (01/10/17 21:44) Labs Laboratory Tests Test 01/10/17 21:45 01/10/17 21:55 White Blood Count 10.0 TH/MM3 Red Blood Count 4.63 MIL/MM3 Hemoglobin 15.3 GM/DL Hematocrit 44.4 % Mean Corpuscular Volume 95.9 FL Mean Corpuscular Hemoglobin 33.1 PG Mean Corpuscular Hemoglobin Concent 34.5 % Red Cell Distribution Width 15.7 % Platelet Count 153 TH/MM3 Mean Platelet Volume 8.7 FL Neutrophils (%) (Auto) 62.2 % Lymphocytes (%) (Auto) 27.9 % Monocytes (%) (Auto) 6.2 % Eosinophils (%) (Auto) 3.2 % Basophils (%) (Auto) 0.5 % Neutrophils # (Auto) 6.3 TH/MM3 Lymphocytes # (Auto) 2.8 TH/MM3 Monocytes # (Auto) 0.6 TH/MM3 Eosinophils # (Auto) 0.3 TH/MM3 Basophils # (Auto) 0.0 TH/MM3 CBC Comment DIFF FINAL Differential Comment Blood Urea Nitrogen 7 MG/DL Creatinine 0.88 MG/DL Random Glucose 91 MG/DL Total Protein 6.9 GM/DL Albumin 3.8 GM/DL Calcium Level 7.8 MG/DL Alkaline Phosphatase 87 U/L Aspartate Amino Transf (AST/SGOT) 29 U/L Alanine Aminotransferase (ALT/SGPT) 30 U/L Total Bilirubin 0.4 MG/DL Sodium Level 147 MEQ/L Potassium Level 4.0 MEQ/L Chloride Level 113 MEQ/L Carbon Dioxide Level 24.5 MEQ/L Anion Gap 10 MEQ/L Estimat Glomerular Filtration Rate 92 ML/MIN Ethyl Alcohol Level 363 MG/DL Urine Opiates Screen NEG Urine Barbiturates Screen NEG Urine Amphetamines Screen NEG Urine Benzodiazepines Screen POS Urine Cocaine Screen NEG Urine Cannabinoids Screen NEG MDM Medical Decision Making Medical Screen Exam Complete: Yes Emergency Medical Condition: Yes Medical Record Reviewed: Yes (this patient is an alcoholic and has had a previous subdural hematoma.) Differential Diagnosis Differential diagnosis includes but is not limited to depression with suicidal gesture, suicide attempt, suicidal ideation, attention seeking behavior. Narrative Course This patient presents as a Hensley Act because of suicidal ideation. He is intoxicated. He has had a previous subdural hematoma. Because of this, I have added a CT of his head to his medical clearance evaluation. CBC & BMP Diagram 01/10/17 21:45 Total Protein 6.9, Albumin 3.8, Calcium Level 7.8 L, Alkaline Phosphatase 87, Aspartate Amino Transf (AST/SGOT) 29, Alanine Aminotransferase (ALT/SGPT) 30, Total Bilirubin 0.[address] 01/10/17 4414 Signed Impressions: Service Date/Time: Tuesday, January 10, 2017 23:45 - CONCLUSION: Normal examination. Arslan Bauer MD This patient is medically clear for psychiatric evaluation. Diagnosis Primary Impression: Encounter for medical clearance for patient hold Condition: Stable Latrice Delarosa MD Jan 10, 2017 23:20
[2017-01-10 23:27] LABS: ALCOHOL 363 MG/DL (0-5)
--- NOTE | 2017-01-11 00:09 | RADRPT ---
EXAM DATE/TIME: 01/10/2017 23:45 [facility] COMPARISON: No previous studies available for comparison. INDICATIONS : Altered mental status. ETOH. RADIATION DOSE: 56.35 CTDIvol (mGy) MEDICAL HISTORY : Subdural hematoma. SURGICAL HISTORY : None. ENCOUNTER: Initial ACUITY: 1 day PAIN SCALE: 0/10 LOCATION: cranial TECHNIQUE: Multiple contiguous axial images were obtained of the head. Using automated exposure control and adj ustment of the mA and/or kV according to patient size, radiation dose was kept as low as reasonably a chievable to obtain optimal diagnostic quality images. DICOM format image data is available electro nically for review and comparison. FINDINGS: CEREBRUM: The ventricles are normal for age. No evidence of midline shift, mass lesion, hemorrhage or acute in farction. No extra-axial fluid collections are seen. POSTERIOR FOSSA: The cerebellum and brainstem are intact. The 4th ventricle is midline. The cerebellopontine angle i s unremarkable. EXTRACRANIAL: The visualized portion of the orbits is intact. Extensive maxillary and nasal sinus disease unchanged SKULL: The calvaria is intact. No evidence of skull fracture. CONCLUSION: Normal examination. Arslan Bauer MD on January 11, 2017 at 0:07 Board Certified Radiologist. This report was verified electronically.
[2017-01-11 00:12] VITALS: PULSE 79; RESP 16; O2SAT 95
[2017-01-11 06:17] VITALS: BP 94/53; PULSE 80; RESP 18
[2017-01-11 10:00] VITALS: BP 128/63; PULSE 96; RESP 18
--- NOTE | 2017-01-11 12:04 | PD ---
History of Present Illness Chief Complaint: Psychiatric Symptoms Time Seen by Provider: 11:45 Travel History International Travel<30 Days: No Contact w/Intl Traveler<30days: No Known affected area: No Legal Status Legal Status: Hensley Act Hensley Act Signed By: Gem Pagan History of Present Illness: 51-year-old male brought in under a Hensley act for suicidal behavior. Patient noted to have an alcohol level of 363 last night. Today, he has spotty memory of events from last night and asked this physician in what city ended what hospital we are located. He is no longer intoxicated and he denies any suicidal or homicidal ideation, plan or intent. His cognition is intact and he has no psychotic symptoms. He is verbally rukhsana for safety and he is competent to do so. PFSH Past Medical History Asthma: Yes Depression: Yes (2016) Cardiovascular Problems: No Chest Pain: Yes (OCCASSIONAL) Gastrointestinal Disorders: No Genitourinary: No Implanted Vascular Access Dvce: No Musculoskeletal: No Neurologic: No Reproductive: No Respiratory: Yes Immunizations Current: Yes Migraines: Yes (MORNING, LIGHT SENSITIVITY) Tetanus Vaccination: Unknown Influenza Vaccination: Yes Past Surgical History Other Surgery: No Psychiatric History Psychiatric History Hx Psychiatric Treatment: ACCORDING MEDICAL RECORDS, NONE History of Inpatient Treatment: No Guns or firearms in home: No Social History Hx Alcohol Use: Yes (last use yesterday, daily etoh) Hx Tobacco Use: No Hx Substance Use: Yes Allergies-Medications (Allergen,Severity, Reaction): Coded Allergies: No Known Allergies (Unverified Adverse Reaction, Unknown, 01/10/17) Reported Meds & Prescriptions Reported Meds & Active Scripts Active Review of Systems Except as stated in HPI: all other systems reviewed are Neg Mental Status Examination Appearance: Appropriate Consciousness: Alert Orientation: x4 Motor Activity: Normal gait Speech: Unremarkable Language: Adequate Fund of Knowledge: Adequate Attention and Concentration: Adequate Memory: Unremarkable Mood: Appropriate Affect: Appropriate Thought Process & Associations: Intact Thought Content: Appropriate Hallucination Type: None Delusion Type: None Suicidal Ideation: No Suicidal Plan: No Suicidal Intention: No Homicidal Ideation: No Homicidal Plan: No Homicidal Intention: No Insight: Adequate Judgment: Adequate [facility] Medical Decision Making Medical Record Reviewed: Yes Assessment/Plan 51-year-old male with significant alcoholism problem and intoxication last night. Medical record reviewed and patient interviewed at bedside. Case discussed with nurse Alcides. Patient no longer meets criteria for Hensley act or involuntary psychiatric hospitalization. He is verbally rukhsana for safety and he is competent to do so. Orders Orders Complete Blood Count With Diff (01/10/17 21:44) Comprehensive Metabolic Panel (01/10/17 21:44) Psych Screen (01/10/17 21:44) Haloperidol Inj (Haldol Inj) (01/10/17 21:45) Lorazepam Inj (Ativan Inj) (01/10/17 21:45) Restraints Non-Violent LIA.Q3H (01/10/17 21:44) Drug Screen, Random Urine (01/10/17 21:44) Alcohol (Ethanol) (01/10/17 21:44) Ct Brain W/O Iv Contrast(Rout) (01/10/17 21:44) Diet Regular Basic (01/11/17 Breakfast) Results Vital Signs Date Time Temp Pulse Resp B/P (MAP) Pulse Ox O2 Delivery O2 Flow Rate FiO2 01/11/17 10:00 96 18 128/63 (84) Room Air 01/11/17 06:17 80 18 94/53 (67) 01/11/17 00:12 79 16 95 Room Air 01/10/17 22:51 91 18 123/64 (83) 98 Nasal Cannula 2.00 01/10/17 21:41 98.1 91 18 141/76 (97) 96 Laboratory Tests Test 01/10/17 21:45 01/10/17 21:55 White Blood Count 10.0 Red Blood Count 4.63 Hemoglobin 15.3 Hematocrit 44.4 Mean Corpuscular Volume 95.9 Mean Corpuscular Hemoglobin 33.1 Mean Corpuscular Hemoglobin Concent 34.5 Red Cell Distribution Width 15.7 Platelet Count 153 Mean Platelet Volume 8.7 Neutrophils (%) (Auto) 62.2 Lymphocytes (%) (Auto) 27.9 Monocytes (%) (Auto) 6.2 Eosinophils (%) (Auto) 3.2 Basophils (%) (Auto) 0.5 Neutrophils # (Auto) 6.3 Lymphocytes # (Auto) 2.8 Monocytes # (Auto) 0.6 Eosinophils # (Auto) 0.3 Basophils # (Auto) 0.0 CBC Comment DIFF FINAL Differential Comment Blood Urea Nitrogen 7 Creatinine 0.88 Random Glucose 91 Total Protein 6.9 Albumin 3.8 Calcium Level 7.8 Alkaline Phosphatase 87 Aspartate Amino Transf (AST/SGOT) 29 Alanine Aminotransferase (ALT/SGPT) 30 Total Bilirubin 0.4 Sodium Level 147 Potassium Level 4.0 Chloride Level 113 Carbon Dioxide Level 24.5 Anion Gap 10 Estimat Glomerular Filtration Rate 92 Ethyl Alcohol Level 363 Urine Opiates Screen NEG Urine Barbiturates Screen NEG Urine Amphetamines Screen NEG Urine Benzodiazepines Screen POS Urine Cocaine Screen NEG Urine Cannabinoids Screen NEG Diagnosis Primary Impression: Alcohol abuse Condition: Stable Austin Sotck MD Jan 11, 2017 12:04
--- NOTE | 2017-01-11 12:07 | PD ---
Physical Exam Date Seen by Provider: Jan 11, 2017 Time Seen by Provider: 12:05 Narrative For full history and physical examination please see previous provider's note. Data Data Last Documented VS Vital Signs Date Time Temp Pulse Resp B/P (MAP) Pulse Ox O2 Delivery O2 Flow Rate FiO2 01/11/17 10:00 96 18 128/63 (84) Room Air 01/11/17 00:12 95 01/10/17 22:51 2.00 01/10/17 21:41 98.1 Orders Orders Complete Blood Count With Diff (01/10/17 21:44) Comprehensive Metabolic Panel (01/10/17 21:44) Psych Screen (01/10/17 21:44) Haloperidol Inj (Haldol Inj) (01/10/17 21:45) Lorazepam Inj (Ativan Inj) (01/10/17 21:45) Restraints Non-Violent LIA.Q3H (01/10/17 21:44) Drug Screen, Random Urine (01/10/17 21:44) Alcohol (Ethanol) (01/10/17 21:44) Ct Brain W/O Iv Contrast(Rout) (01/10/17 21:44) Diet Regular Basic (01/11/17 Breakfast) Ed Discharge Order (01/11/17 12:04) Labs Laboratory Tests Test 01/10/17 21:45 01/10/17 21:55 White Blood Count 10.0 TH/MM3 Red Blood Count 4.63 MIL/MM3 Hemoglobin 15.3 GM/DL Hematocrit 44.4 % Mean Corpuscular Volume 95.9 FL Mean Corpuscular Hemoglobin 33.1 PG Mean Corpuscular Hemoglobin Concent 34.5 % Red Cell Distribution Width 15.7 % Platelet Count 153 TH/MM3 Mean Platelet Volume 8.7 FL Neutrophils (%) (Auto) 62.2 % Lymphocytes (%) (Auto) 27.9 % Monocytes (%) (Auto) 6.2 % Eosinophils (%) (Auto) 3.2 % Basophils (%) (Auto) 0.5 % Neutrophils # (Auto) 6.3 TH/MM3 Lymphocytes # (Auto) 2.8 TH/MM3 Monocytes # (Auto) 0.6 TH/MM3 Eosinophils # (Auto) 0.3 TH/MM3 Basophils # (Auto) 0.0 TH/MM3 CBC Comment DIFF FINAL Differential Comment Blood Urea Nitrogen 7 MG/DL Creatinine 0.88 MG/DL Random Glucose 91 MG/DL Total Protein 6.9 GM/DL Albumin 3.8 GM/DL Calcium Level 7.8 MG/DL Alkaline Phosphatase 87 U/L Aspartate Amino Transf (AST/SGOT) 29 U/L Alanine Aminotransferase (ALT/SGPT) 30 U/L Total Bilirubin 0.4 MG/DL Sodium Level 147 MEQ/L Potassium Level 4.0 MEQ/L Chloride Level 113 MEQ/L Carbon Dioxide Level 24.5 MEQ/L Anion Gap 10 MEQ/L Estimat Glomerular Filtration Rate 92 ML/MIN Ethyl Alcohol Level 363 MG/DL Urine Opiates Screen NEG Urine Barbiturates Screen NEG Urine Amphetamines Screen NEG Urine Benzodiazepines Screen POS Urine Cocaine Screen NEG Urine Cannabinoids Screen NEG MDM Medical Record Reviewed: Yes Supervised Visit with LIANG: No Narrative Course Patient is a 51-year-old male that presented to emergency and under Hensley act for psychiatric evaluation secondary to suicidal ideations. Patient was noted to be intoxicated. Patient was seen and evaluated in the emergency department, medically cleared. He was then evaluated by the psychiatrist. The Hensley act was lifted by the psychiatrist, the patient was sober he no longer had suicidal ideations. Patient is stable for discharge. Diagnosis Primary Impression: Alcohol abuse Referrals: [facility] 1 day Patient Instructions: Abuse of Alcohol (ED), General Instructions Additional Instruction: Follow-up at [facility] Avoid excessive intake of alcohol Follow-up with a primary doctor Return to emergency department for any new or worsening symptoms Med/Other Pt SpecificInfo: No Change to Meds Disposition: 01 DISCHARGE HOME Condition: Stable Neha Reyes Jan 11, 2017 12:07
[2017-01-11 12:27] VITALS: BP 128/63; PULSE 96; RESP 18
== END 2017-01-11 13:04 | disposition home or self-care (01) ==
LOC: NEPD 21:27 → NEPJ 01-11 13:04
DX: F10.10 Alcohol abuse, uncomplicated (principal); J45.909 Unspecified asthma, uncomplicated
CPT/HCPCS: 70450; 80053; 80307; 85025; 96372; 99285; J1630; J2060

== ENCOUNTER 2017-04-07 20:33 | Emergency (ER) | payer OTHER ==
[~2017-04-07] VITALS: Ht 177.8 cm; Wt 90.0 kg
--- NOTE | 2017-04-07 21:16 | PD ---
HPI Chief Complaint: med clearance Time Seen by Provider: 21:10 Travel History International Travel<30 days: No Contact w/Intl Traveler<30days: No Traveled to known affect area: No History of Present Illness HPI 51-year-old male brought to the emergency department by law enforcement for medical clearance prior to going to group home. Patient has been arrested after no alleged amassed dispute this evening. He struck his head several times on the inside of the police car. He did not lose conscious. He does have abrasion to the superior scalp. Has no focal deficits or weakness. States he has been drinking alcohol this evening. He has no other symptoms to report. [facility] Past Medical History Asthma: Yes Depression: Yes (2016) Cardiovascular Problems: No Chest Pain: Yes (OCCASSIONAL) Gastrointestinal Disorders: No Genitourinary: No Implanted Vascular Access Dvce: No Musculoskeletal: No Neurologic: No Reproductive: No Respiratory: Yes Immunizations Current: Yes Migraines: Yes (MORNING, LIGHT SENSITIVITY) Past Surgical History Other Surgery: No Social History Alcohol Use: Yes (last use yesterday, daily etoh) Tobacco Use: No Substance Use: Yes Allergies-Medications (Allergen,Severity, Reaction): Coded Allergies: No Known Allergies (Unverified Adverse Reaction, Unknown, 01/10/17) Reported Meds & Prescriptions Reported Meds & Active Scripts Active Review of Systems Except as stated in HPI: all other systems reviewed are Neg Physical Exam Narrative GENERAL: Well-nourished male patient, clearly agitated, yelling and crying but in no acute distress. SKIN: Focused skin assessment warm/dry. HEAD: Abrasion with small hematoma to the superior scalp. Normocephalic. EYES: Pupils equal and round. No scleral icterus. No injection or drainage. ENT: No nasal bleeding or discharge. Mucous membranes pink and moist. NECK: Trachea midline. No JVD. CARDIOVASCULAR: Tachycardic rate and rhythm. No murmur appreciated. RESPIRATORY: No accessory muscle use. Clear to auscultation. Breath sounds equal bilaterally. GASTROINTESTINAL: Abdomen soft, non-tender, nondistended. Hepatic and splenic margins not palpable. MUSCULOSKELETAL: No obvious deformities. No clubbing. No cyanosis. No edema. NEUROLOGICAL: Awake and alert. No obvious cranial nerve deficits. Motor grossly within normal limits. Normal speech. Data Data Last Documented VS Vital Signs Date Time Temp Pulse Resp B/P (MAP) Pulse Ox O2 Delivery O2 Flow Rate FiO2 04/07/17 21:30 99.2 133 16 145/111 (122) [address] Brain W/O Iv Contrast(Rout) (04/07/17 ) Ed Discharge Order (04/07/17 21:59) MDM Medical Decision Making Medical Screen Exam Complete: Yes Emergency Medical Condition: Yes Medical Record Reviewed: Yes Differential Diagnosis Minor head injury versus close head injury versus intracranial hemorrhage versus concussion Narrative Course 51-year-old male presents to emergency department for evaluation. Patient appears very agitated. He has been drinking alcohol this evening. He is in law enforcement custody. He does have an abrasion to the superior scalp. CT imaging confirms no intracranial abnormality. Patient is discharged in law enforcement custody Diagnosis Primary Impression: Head injury Qualified Codes: S09.90XA - Unspecified injury of head, initial encounter Referrals: Primary Care Physician Patient Instructions: Head Injury (ED) Additional Instructions: Ice to the affected area Consume alcohol moderation Return immediately to the emergency department with any acute worsening symptoms Disposition: [address] LAW ENFORCEMNT Condition: Stable FlavioIrvinTangelajuwan AKERS Apr 07, 2017 21:16
[2017-04-07 21:30] VITALS: BP 145/111; PULSE 133; RESP 16; TEMP 99.2; O2SAT 94
--- NOTE | 2017-04-07 21:46 | RADRPT ---
EXAM DATE/TIME: 04/07/2017 21:37 [place] COMPARISON: CT BRAIN W/O CONTRAST, January 10, 2017, 23:45. INDICATIONS : Trauma, hit head. RADIATION DOSE: 56.35 CTDIvol (mGy) MEDICAL HISTORY : None SURGICAL HISTORY : None. ENCOUNTER: Initial ACUITY: 1 day PAIN SCALE: 5/10 LOCATION: cranial TECHNIQUE: Multiple contiguous axial images were obtained of the head. Using automated exposure control and adj ustment of the mA and/or kV according to patient size, radiation dose was kept as low as reasonably a chievable to obtain optimal diagnostic quality images. DICOM format image data is available electro nically for review and comparison. FINDINGS: CEREBRUM: The ventricles are normal for age. No evidence of midline shift, mass lesion, hemorrhage or acute in farction. No extra-axial fluid collections are seen. POSTERIOR FOSSA: The cerebellum and brainstem are intact. The 4th ventricle is midline. The cerebellopontine angle i s unremarkable. EXTRACRANIAL: Mucoperiosteal thickening again seen of the visualized paranasal sinuses. SKULL: The calvaria is intact. No evidence of skull fracture. CONCLUSION: No acute intracranial abnormality. Chronic sinus disease. Mic Foley MD on April 07, 2017 at 21:44 Board Certified Radiologist. This report was verified electronically.
[2017-04-07 22:06] VITALS: PULSE 103; RESP 16
== END 2017-04-07 22:17 ==
LOC: NEDAMB 20:33
DX: S00.01XA Abrasion of scalp, initial encounter (principal); W22.8XXA Striking against or struck by other objects, initial encounter; Y92.810 Car as the place of occurrence of the external cause
CPT/HCPCS: 70450; 99283

== ENCOUNTER 2017-08-03 07:41 | Emergency (ER) | payer OTHER ==
[~2017-08-03] VITALS: Ht 172.7 cm; Wt 80.5 kg
[2017-08-03 07:48] VITALS: BP 140/81; PULSE 89; RESP 20; TEMP 98; O2SAT 94
[2017-08-03] MEDS ORDERED: LORazepam 2 MG/ML VIAL IV PUSH ONE (08:15)
--- NOTE | 2017-08-03 08:18 | PD ---
HPI Chief Complaint: Alcohol/Drug Intoxication Time Seen by Provider: 08:15 Travel History International Travel<30 days: No Contact w/Intl Traveler<30days: No Traveled to known affect area: No History of Present Illness HPI 51-year-old male patient with history of alcoholism, presents to the ER today because he states he wants withdrawal, last had alcohol 3 hours ago, and is feeling shaky. He states that in the past he has been told that he has had liver issues. Because of the alcohol. He states that he is so frustrated with trying to get rehab and not being able to get into a bed, that he is having suicidal thoughts. He denies other issues. Modifying Factors: None Associated Signs & Symptoms: Alcohol withdrawal, requesting alcohol rehab, suicidal ideation Risk Factors: Chronic alcohol use PFSH Past Medical History Asthma: Yes Depression: Yes (2016) Cardiovascular Problems: Yes (pt states does not take meds) Chest Pain: Yes (OCCASSIONAL) Diminished Hearing: No Gastrointestinal Disorders: No Genitourinary: No Hypertension: Yes Implanted Vascular Access Dvce: No Musculoskeletal: No Neurologic: No Reproductive: No Respiratory: Yes Immunizations Current: Yes Migraines: Yes (MORNING, LIGHT SENSITIVITY) Tetanus Vaccination: > 5 Years Influenza Vaccination: Yes Past Surgical History Surgical History: No Previous Surgery Other Surgery: No Social History Alcohol Use: Yes (drink every day) Tobacco Use: No Substance Use: No Allergies-Medications (Allergen,Severity, Reaction): Coded Allergies: No Known Allergies (Verified Adverse Reaction, Unknown, 08/03/17) Reported Meds & Prescriptions Reported Meds & Active Scripts Active No Active Prescriptions or Reported Medications Review of Systems Except as stated in HPI: all other systems reviewed are Neg Physical Exam Narrative GENERAL: Well-developed middle-age male patient currently in moderate distress. Awake and oriented 3. SKIN: Focused skin assessment warm/dry. Notable ecchymoses to the forearms bilaterally, nontender to palpation, no significant deformities or bony deformities. Nontender range of motion. HEAD: Atraumatic. Normocephalic. EYES: Pupils equal and round. No scleral icterus. No injection or drainage. ENT: No nasal bleeding or discharge. Mucous membranes pink and moist. NECK: Trachea midline. No JVD. CARDIOVASCULAR: Regular rate and rhythm. No murmur appreciated. RESPIRATORY: No accessory muscle use. Clear to auscultation. Breath sounds equal bilaterally. GASTROINTESTINAL: Abdomen soft, non-tender, nondistended. Hepatic and splenic margins not palpable. MUSCULOSKELETAL: No obvious deformities. No clubbing. No cyanosis. No edema. NEUROLOGICAL: Awake and alert. No obvious cranial nerve deficits. Motor grossly within normal limits. Normal speech. PSYCHIATRIC: Appropriate mood and affect; insight and judgment normal. Data Data Last Documented VS Vital Signs Date Time Temp Pulse Resp B/P (MAP) Pulse Ox O2 Delivery O2 Flow Rate FiO2 08/03/17 08:02 86 17 98 Room Air 08/03/17 07:48 98.0 140/81 (100) Orders Orders Complete Blood Count With Diff (08/03/17 08:15) Comprehensive Metabolic Panel (08/03/17 08:15) Thyroid Stimulating Hormone (08/03/17 08:15) Iv Access Insert/Monitor (08/03/17 08:15) Psych Screen (08/03/17 08:15) Lorazepam Inj (Ativan Inj) (08/03/17 08:15) Drug Screen, Random Urine (08/03/17 08:15) Alcohol (Ethanol) (08/03/17 08:15) Labs Laboratory Tests Test 08/03/17 08:21 08/03/17 08:25 Urine Opiates Screen NEG Urine Barbiturates Screen NEG Urine Amphetamines Screen NEG Urine Benzodiazepines Screen POS Urine Cocaine Screen NEG Urine Cannabinoids Screen NEG White Blood Count 4.7 TH/MM3 Red Blood Count 4.59 MIL/MM3 Hemoglobin 15.7 GM/DL Hematocrit 45.4 % Mean Corpuscular Volume 98.8 FL Mean Corpuscular Hemoglobin 34.3 PG Mean Corpuscular Hemoglobin Concent 34.7 % Red Cell Distribution Width 16.6 % Platelet Count 107 TH/MM3 Mean Platelet Volume 8.2 FL Neutrophils (%) (Auto) 56.3 % Lymphocytes (%) (Auto) 25.6 % Monocytes (%) (Auto) 14.6 % Eosinophils (%) (Auto) 2.5 % Basophils (%) (Auto) 1.0 % Neutrophils # (Auto) 2.6 TH/MM3 Lymphocytes # (Auto) 1.2 TH/MM3 Monocytes # (Auto) 0.7 TH/MM3 Eosinophils # (Auto) 0.1 TH/MM3 Basophils # (Auto) 0.0 TH/MM3 CBC Comment DIFF FINAL Differential Comment Blood Urea Nitrogen 5 MG/DL Creatinine 0.69 MG/DL Random Glucose 81 MG/DL Calcium Level 9.1 MG/DL Aspartate Amino Transf (AST/SGOT) 138 U/L Alanine Aminotransferase (ALT/SGPT) 117 U/L Sodium Level 139 MEQ/L Potassium Level 3.8 MEQ/L Chloride Level 100 MEQ/L Carbon Dioxide Level 27.6 MEQ/L Anion Gap 11 MEQ/L Estimat Glomerular Filtration Rate 121 ML/MIN Ethyl Alcohol Level 287 MG/DL [facility] Medical Decision Making Medical Screen Exam Complete: Yes Emergency Medical Condition: Yes Medical Record Reviewed: Yes Interpretation(s) Laboratory Tests Test 08/03/17 08:21 08/03/17 08:25 Urine Benzodiazepines Screen POS (NEG) Mean Corpuscular Hemoglobin 34.3 PG (27.0-34.0) Platelet Count 107 TH/MM3 (150-450) Monocytes (%) (Auto) 14.6 % (0.0-8.0) Blood Urea Nitrogen 5 MG/DL (7-18) Aspartate Amino Transf (AST/SGOT) 138 U/L (15-37) Alanine Aminotransferase (ALT/SGPT) 117 U/L (12-78) Ethyl Alcohol Level 287 MG/DL (0-5) Differential Diagnosis Medical clearance for alcohol abuse/suicidal ideation Narrative Course Patient is positive for alcohol. His liver enzymes are mildly elevated likely secondary to alcohol use. At this point, patient had expressed suicidal ideation and he was Hensley acted. Planning to medically clear him for psychiatric evaluation. Diagnosis Primary Impression: Alcohol intoxication Additional Impressions: Elevated liver enzymes Suicidal ideation Scripts No Active Prescriptions or Reported Meds Condition: Stable Ghazala Duke MD Aug 03, 2017 08:18
[2017-08-03 09:02] LABS: AUTOMATED NEUTROPHIL # 2.6 TH/MM3 (1.8-7.7); EOSINOPHIL # 0.1 TH/MM3 (0-0.4); EOSINOPHIL % 2.5 % (0.0-4.0); HEMATOCRIT 45.4 % (39.0-51.0); HEMOGLOBIN 15.7 GM/DL (13.0-17.0); LYMPH % 25.6 % (9.0-44.0); LYMPHOCYTE # 1.2 TH/MM3 (1.0-4.8); MEAN CELL VOLUME 98.8 FL (80.0-100.0); MEAN CORPUSCULAR HEMOGLOBIN 34.3 PG (27.0-34.0); MEAN CORPUSCULAR HGB CONC 34.7 % (32.0-36.0); MEAN PLATELET VOLUME 8.2 FL (7.0-11.0); MONO % 14.6 % (0.0-8.0); MONOCYTE # 0.7 TH/MM3 (0-0.9); NEUT % 56.3 % (16.0-70.0); PLATELET COUNT 107 TH/MM3 (150-450); RED BLOOD COUNT 4.59 MIL/MM3 (4.50-5.90); RED CELL DISTRIBUTION WIDTH 16.6 % (11.6-17.2); WHITE BLOOD COUNT 4.7 TH/MM3 (4.0-11.0)
[2017-08-03 09:16] LABS: ALT (GPT) 117 U/L (12-78); AST (GOT) 138 U/L (15-37); BICARBONATE 27.6 MEQ/L (21.0-32.0); BLOOD UREA NITROGEN 5 MG/DL (7-18); CALCIUM 9.1 MG/DL (8.5-10.1); CHLORIDE 100 MEQ/L (98-107); CREATININE 0.69 MG/DL (0.60-1.30); GLOMERULAR FILTRATION RATE 121 ML/MIN (>89); GLUCOSE,RANDOM 81 MG/DL (74-106); SODIUM (NA) 139 MEQ/L (136-145)
[2017-08-03 09:26] LABS: ALBUMIN 4.1 GM/DL (3.4-5.0); ALKALINE PHOSPHATASE 113 U/L (45-117); TOTAL BILIRUBIN ADULT 0.6 MG/DL (0.2-1.0); TOTAL PROTEIN 7.8 GM/DL (6.4-8.2)
[2017-08-03 11:00] VITALS: BP 120/71; PULSE 85; RESP 18; TEMP 98.5; O2SAT 95
[2017-08-03] MEDS ORDERED: LORazepam 2 MG TAB PO PRN (15:30)
[2017-08-03] MEDS ORDERED: FLUMAZENIL 0.5 MG/5 ML VIAL IV PUSH PRN (15:30)
[2017-08-03] MEDS ORDERED: LORazepam 2 MG/ML VIAL IV PUSH PRN ×4 (15:30)
[2017-08-03] MEDS: LORazepam 1 MG TAB PO PRN ×2 (15:37→22:46)
--- NOTE | 2017-08-03 17:24 | PD.PSY.CON ---
Provisional Diagnosis Admission Date Date of consultation 08/03/17 Woodruff I. 1. Alcohol dependence with withdrawal 2. Malingering suicidal ideation for detox Woodruff II. Deferred History of Present Illness Service Psychiatry Consult Requested By Emergency department Reason for Consult Shellie smith Primary Care Physician Carlos Jones MD HPI Mr. Maciel is a 51-year-old male with a history of alcohol dependence who presented to the ED seeking detoxification services. He has apparently been trying to obtain a bed on the detox unit at [facility] and has been unsuccessful. He told the ED provider that "he is so frustrated with trying to get rehab and not being able to get into a bed, that he is having suicidal thoughts." ED provider Shellie Acted the patient. Patient's alcohol level on presentation here was 287. Reviewing the electronic medical record, I note the patient was seen in consultation by Dr. Stock in December of last year with a diagnosis of alcohol abuse. Patient seen and examined. Chart reviewed. Case discussed with nurse in the J pod. There has been no evidence of suicidality or homicidality, no behavioral disturbance while the patient has been under observation in the ED. On my examination today, the patient is is clinically sober. He is diaphoretic and has a mild resting hand tremor but no tongue fasciculations or mydriasis. I have asked the nurse to evaluate the patient on the CIWA scale (already ordered ) and medicate as appropriate. On my examination today, the patient says that he has been trying for several days to get a detox bed at [facility], but he has been unsuccessful. He does not describe any current suicidal or homicidal ideation, intent or plan. He does say that he feels that he must get help for his alcoholism. He maintains he is committed to chem dep treatment, although he cannot explain his motivation for seeking such treatment now. No depressive or hypomanic/manic symptoms presently. He denies any audiovisual hallucinations. No delusional material in evidence. No evidence of impairment in reality construction. The remainder of the psychiatric ROS is negative. Besides symptoms of withdrawal, no acute physical complaints. Past psychiatric history: Patient reports a history of alcoholism. He is not under the care of an outpatient psychiatrist. He denies any history of psychiatric admissions or suicide attempts. Family history: Patient reports that his father was an alcoholic. He denies any family history of mental illness or suicide. Chemical dependency history: Patient reports that he drinks an 18 pack of beer a day. His last drink was this morning. He says that he has had consequences of job loss and legal problems from his drinking. He says that he is on probation for assault and battery on a minor and that this charge was alcohol related. He endorses a history of DTs but denies a history of seizure. His longest sober time is 5 months. He has a history of detoxification but has never attended chemical dependency rehabilitation program. Social history: Patient lives with his girlfriend and 5 children. He has a grade 11 education. He reportedly lost his job because of his drinking. He previously worked in construction. He denies any history. No legal issues other than above. Denies any access to guns or firearms. Denies any temple or spiritual beliefs. Denies any history of abuse. Review of Systems Except as stated in HPI: all other systems reviewed are Neg Past Family Social History Coded Allergies: No Known Allergies (Verified Adverse Reaction, Unknown, 08/03/17) Past Medical History Includes a history of hypertension. Patient reports that he was recently started on an antihypertensive by his general practitioner but cannot recall the name of the drug. No Active Prescriptions or Reported Meds Current Medications Medications (Trade) Dose Ordered Sig/Audie Route Start Time Stop Time Status Last Admin (Romazicon Inj) 0.2 mg Q1M PRN IV PUSH 08/03/17 15:30 (Ativan) 1 mg Q4H PRN PO 08/03/17 15:30 08/03/17 15:37 (Ativan Inj) 1 mg Q4H PRN IV PUSH 08/03/17 15:30 (Ativan) 2 mg Q2H PRN PO 08/03/17 15:30 (Ativan Inj) 2 mg Q2H PRN IV PUSH 08/03/17 15:30 (Ativan Inj) 2 mg Q1H PRN IV PUSH 08/03/17 15:30 (Ativan Inj) 2 mg Q15M PRN IV PUSH 08/03/17 15:30 Patient's Strengths (min. 2) Seeking alcohol dependence treatment. Attending to basic needs. Physical Exam Physical exam completed by ED provider. On my examination today, the patient is diaphoretic with mild resting hand tremor but has no other stigmata of alcohol withdrawal. No other motor abnormalities noted. Labs and vitals reviewed: Vital Signs Vital Signs Date Time Temp Pulse Resp B/P (MAP) Pulse Ox O2 Delivery O2 Flow Rate FiO2 08/03/17 11:00 98.5 85 18 120/71 (87) 95 Room Air Lab Results Test 08/03/17 08:21 08/03/17 08:25 Urine Opiates Screen NEG Urine Barbiturates Screen NEG Urine Amphetamines Screen NEG Urine Benzodiazepines Screen POS Urine Cocaine Screen NEG Urine Cannabinoids Screen NEG White Blood Count 4.7 TH/MM3 Red Blood Count 4.59 MIL/MM3 Hemoglobin 15.7 GM/DL Hematocrit 45.4 % Mean Corpuscular Volume 98.8 FL Mean Corpuscular Hemoglobin 34.3 PG Mean Corpuscular Hemoglobin Concent 34.7 % Red Cell Distribution Width 16.6 % Platelet Count 107 TH/MM3 Mean Platelet Volume 8.2 FL Neutrophils (%) (Auto) 56.3 % Lymphocytes (%) (Auto) 25.6 % Monocytes (%) (Auto) 14.6 % Eosinophils (%) (Auto) 2.5 % Basophils (%) (Auto) 1.0 % Neutrophils # (Auto) 2.6 TH/MM3 Lymphocytes # (Auto) 1.2 TH/MM3 Monocytes # (Auto) 0.7 TH/MM3 Eosinophils # (Auto) 0.1 TH/MM3 Basophils # (Auto) 0.0 TH/MM3 CBC Comment DIFF FINAL Differential Comment Blood Urea Nitrogen 5 MG/DL Creatinine 0.69 MG/DL Random Glucose 81 MG/DL Total Protein 7.8 GM/DL Albumin 4.1 GM/DL Calcium Level 9.1 MG/DL Alkaline Phosphatase 113 U/L Aspartate Amino Transf (AST/SGOT) 138 U/L Alanine Aminotransferase (ALT/SGPT) 117 U/L Total Bilirubin 0.6 MG/DL Sodium Level 139 MEQ/L Potassium Level 3.8 MEQ/L Chloride Level 100 MEQ/L Carbon Dioxide Level 27.6 MEQ/L Anion Gap 11 MEQ/L Estimat Glomerular Filtration Rate 121 ML/MIN Thyroid Stimulating Hormone 3rd Gen 1.100 uIU/ML Ethyl Alcohol Level 287 MG/DL Mental Status Examination Appearance: Appropriate Consciousness: Alert Orientation: x4 Motor Activity: Other (Motor exam as above) Speech: Unremarkable Language: Adequate Fund of Knowledge: Adequate Attention and Concentration: Adequate Memory: Unremarkable (Grossly intact on clinical exam) Mood: Appropriate Affect: Appropriate Thought Process & Associations: Intact, Logical, Goal directed, Linear Thought Content: Appropriate Hallucination Type: None Delusion Type: None Suicidal Ideation: No Suicidal Plan: No Suicidal Intention: No Homicidal Ideation: No Homicidal Plan: No Homicidal Intention: No Insight: Adequate Judgment: Adequate Assessment & Plan Problem List: (1) Alcohol dependence ICD Codes: F10.20 - Alcohol dependence, uncomplicated Assessment & Plan 51-year-old male with psychiatric history as detailed above who presents for detoxification from alcohol. He was placed under the Hensley act by the ED provider. On my examination today, it is clear that patient's sole psychiatric issue is to do with alcohol dependence, presently in mild withdrawal. There is no evidence of DTs at present. Although the patient may have articulated some suicidal ideation to ED provider, this was transparently in service of obtaining detox services, and the patient is not presently suicidal now. He does continue to desire detox. Patient's life-affirming desire to obtain help for his alcoholism is inconsistent with genuine suicidality (i.e. desire for self-annihilation). There is no evidence of unstable mental illness as defined under the Hensley act in this patient at this time. There is no evidence of self- care deficit stemming from mental illness as defined under the Hensley act in this patient at this time. Consequently, the patient does not meet the Hensley act criteria. I have lifted the Hensley act. I have reassured the patient that we will make every effort to get him to a detox unit. I have instructed the nurse in the J-Pod to cast a wide net in order to locate a detox unit for the patient. Hopefully, patient can be transferred directly for detox today. If no available detox bed can be found, patient will be referred for chemical dependency services at [facility]. I have supported the patient in his desire for abstinence from alcohol. I have counseled the patient to return to the psychiatric emergency room for any concerning psychiatric symptoms, in particular for any suicidal ideation, as part of a general safety plan. Thank you very much for this consultation. Problem Qualifiers (1) Alcohol dependence: Qualified Codes: F10.230 - Alcohol dependence with withdrawal, uncomplicated Wiley Adams MD Aug 03, 2017 17:24
[2017-08-03 18:38] VITALS: BP 168/109; PULSE 79; RESP 18; TEMP 98.7; O2SAT 95
[2017-08-03] MEDS ORDERED: LORazepam 2 MG/ML VIAL IM PRN ×4 (19:00)
[2017-08-03 19:34] VITALS: BP 172/101
[2017-08-03 22:28] VITALS: BP 152/95; PULSE 90; RESP 18; O2SAT 94
[2017-08-04 03:26] VITALS: BP 169/106; PULSE 89; RESP 16; TEMP 98.2; O2SAT 96
[2017-08-04] MEDS: LORazepam 1 MG TAB PO PRN ×2 (03:36→09:23)
[2017-08-04 06:33] VITALS: BP 173/96; PULSE 89; RESP 18; TEMP 97.8; O2SAT 97
[2017-08-04 09:18] VITALS: BP 179/110; PULSE 96; RESP 16; O2SAT 95
--- NOTE | 2017-08-04 09:48 | PD ---
Physical Exam Date Seen by Provider: Aug 04, 2017 Time Seen by Provider: 09:47 Narrative 51-year-old male with history of alcohol dependence, previously medically cleared for psychiatric evaluation under the Hensley act, has been seen and evaluated by the psychiatrist and felt to be psychiatrically stable for discharge at this time. Patient remains medically stable for discharge at this time. Follow-up will be based on psychiatric note. Data Data Last Documented VS Vital Signs Date Time Temp Pulse Resp B/P (MAP) Pulse Ox O2 Delivery O2 Flow Rate FiO2 08/04/17 09:18 96 16 179/110 (133) 95 Room Air 08/04/17 06:33 97.8 Orders Orders Complete Blood Count With Diff (08/03/17 08:15) Comprehensive Metabolic Panel (08/03/17 08:15) Thyroid Stimulating Hormone (08/03/17 08:15) Iv Access Insert/Monitor (08/03/17 08:15) Psych Screen (08/03/17 08:15) Lorazepam Inj (Ativan Inj) (08/03/17 08:15) Drug Screen, Random Urine (08/03/17 08:15) Alcohol (Ethanol) (08/03/17 08:15) Diet Regular Basic (08/03/17 Lunch) Alcohol Withdrawal Asmt-Ciwa [id number] (08/03/17 15:18) Flumazenil Inj (Romazicon Inj) (08/03/17 15:30) Lorazepam (Ativan) (08/03/17 15:30) Lorazepam Inj (Ativan Inj) (08/03/17 15:30) Lorazepam (Ativan) (08/03/17 15:30) Lorazepam Inj (Ativan Inj) (08/03/17 15:30) Lorazepam Inj (Ativan Inj) (08/03/17 15:30) Lorazepam Inj (Ativan Inj) (08/03/17 15:30) Diet Regular Basic (08/03/17 Dinner) Lorazepam Inj (Ativan Inj) (08/03/17 19:00) Lorazepam Inj (Ativan Inj) (08/03/17 19:00) Lorazepam Inj (Ativan Inj) (08/03/17 19:00) Lorazepam Inj (Ativan Inj) (08/03/17 19:00) Diet Regular Basic (08/04/17 Breakfast) Labs Laboratory Tests Test 08/03/17 08:21 08/03/17 08:25 Urine Opiates Screen NEG Urine Barbiturates Screen NEG Urine Amphetamines Screen NEG Urine Benzodiazepines Screen POS Urine Cocaine Screen NEG Urine Cannabinoids Screen NEG White Blood Count 4.7 TH/MM3 Red Blood Count 4.59 MIL/MM3 Hemoglobin 15.7 GM/DL Hematocrit 45.4 % Mean Corpuscular Volume 98.8 FL Mean Corpuscular Hemoglobin 34.3 PG Mean Corpuscular Hemoglobin Concent 34.7 % Red Cell Distribution Width 16.6 % Platelet Count 107 TH/MM3 Mean Platelet Volume 8.2 FL Neutrophils (%) (Auto) 56.3 % Lymphocytes (%) (Auto) 25.6 % Monocytes (%) (Auto) 14.6 % Eosinophils (%) (Auto) 2.5 % Basophils (%) (Auto) 1.0 % Neutrophils # (Auto) 2.6 TH/MM3 Lymphocytes # (Auto) 1.2 TH/MM3 Monocytes # (Auto) 0.7 TH/MM3 Eosinophils # (Auto) 0.1 TH/MM3 Basophils # (Auto) 0.0 TH/MM3 CBC Comment DIFF FINAL Differential Comment Blood Urea Nitrogen 5 MG/DL Creatinine 0.69 MG/DL Random Glucose 81 MG/DL Total Protein 7.8 GM/DL Albumin 4.1 GM/DL Calcium Level 9.1 MG/DL Alkaline Phosphatase 113 U/L Aspartate Amino Transf (AST/SGOT) 138 U/L Alanine Aminotransferase (ALT/SGPT) 117 U/L Total Bilirubin 0.6 MG/DL Sodium Level 139 MEQ/L Potassium Level 3.8 MEQ/L Chloride Level 100 MEQ/L Carbon Dioxide Level 27.6 MEQ/L Anion Gap 11 MEQ/L Estimat Glomerular Filtration Rate 121 ML/MIN Thyroid Stimulating Hormone 3rd Gen 1.100 uIU/ML Ethyl Alcohol Level 287 MG/DL [facility] Medical Record Reviewed: Yes Supervised Visit with LIANG: Yes Narrative Course 51-year-old male with history of alcohol dependence, previously medically cleared for psychiatric evaluation under the Hensley act, has been seen and evaluated by the psychiatrist and felt to be psychiatrically stable for discharge at this time. Patient remains medically stable for discharge at this time. Follow-up will be based on psychiatric note. Diagnosis Primary Impression: Alcohol intoxication Additional Impressions: Suicidal ideation Elevated liver enzymes Referrals: [facility] Patient Instructions: Abuse of Alcohol (ED), General Instructions Scripts No Active Prescriptions or Reported Meds Disposition: 01 DISCHARGE HOME Condition: Ben [place] Aug 04, 2017 09:48
== END 2017-08-04 12:42 | disposition home or self-care (01) ==
LOC: NEPC 07:41 → NEPJ 08-04 12:42
DX: F10.220 Alcohol dependence with intoxication, uncomplicated (principal); R74.8 Abnormal levels of other serum enzymes; R45.851 Suicidal ideations; I10 Essential (primary) hypertension; Y90.8 Blood alcohol level of 240 mg/100 ml or more
CPT/HCPCS: 80053; 80307; 84443; 85025; 96374; 99284; J2060